=== PATIENT | male | born 1970 | race Caucasian/White ===

== ENCOUNTER 2017-06-05 11:19 | Emergency (ER) | payer SELFPAY ==
[~2017-06-05] VITALS: Ht 172.7 cm; Wt 62.0 kg
[~2017-06-05 11:19] MED LIST: IBUP400T20 PO; MELO15TA2 PO; TYLE3 PO
[2017-06-05 11:22] VITALS: BP 122/86; PULSE 84; RESP 16; TEMP 97.8; O2SAT 98
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
== END 2017-06-05 13:10 | disposition home or self-care (01) ==
LOC: PHEFT 11:19
DX: S52.501A Unspecified fracture of the lower end of right radius, initial encounter for closed fracture (principal); F17.200 Nicotine dependence, unspecified, uncomplicated; Z72.89 Other problems related to lifestyle; W19.XXXA Unspecified fall, initial encounter
CPT/HCPCS: 29125; 73090; 73130